=== PATIENT | female | born 1960 | race Caucasian/White ===

== ENCOUNTER 2023-01-12 08:00 | Outpatient (CLI) | payer OTHER, BC ==
--- NOTE | 2023-01-12 17:15 | XRAY Report ---
PROCEDURE: Ribs w/PA Chest RT INDICATIONS: RIGHT SIDED RIB PAIN TECHNIQUE: 2 views of the right ribs were acquired, along with a single view chest. COMPARISON: None FINDINGS: Surgical changes and devices: None. Bones and chest wall: No fractures or dislocations. No suspicious bony lesions. Overlying soft tis sues appear unremarkable. Lungs and pleura: No pleural effusions or pneumothorax. Lungs appear clear. Mediastinum: Mediastinal contours appear normal. Heart size is normal. IMPRESSION: No gross displaced right rib fracture is seen. No acute cardiopulmonary pathology. Reviewed by: Ricardo Zamora MD on 01/12/2023 5:13 PM PST Approved by: Ricardo Zamora MD on 01/12/2023 5:13 PM PST Station ID: [id number]
== END 2023-01-12 23:59 | disposition home or self-care (01) ==
LOC: DI.S 08:00
PROVIDERS: ATTEND Registered Nurse
DX: R07.81 Pleurodynia (principal)

== ENCOUNTER 2023-05-21 07:00 | Outpatient (CLI) | payer OTHER, BC | END 2023-05-21 23:59 | disposition home or self-care (01) | LOC: LAB.S 07:00 | PROVIDERS: ATTEND Physician Assistant Medical | DX: R30.0 Dysuria (principal); R10.9 Unspecified abdominal pain | CPT/HCPCS: 87086 ==

== ENCOUNTER 2023-05-21 08:00 | Outpatient (CLI) | payer OTHER, BC ==
--- NOTE | 2023-05-21 16:45 | XRAY Report ---
PROCEDURE: Lumbar Spine 2 View INDICATIONS: LUMBAR BACK PAIN TECHNIQUE: 2 views of the lumbar spine were acquired. COMPARISON: None. FINDINGS: Bones: 5 dgv-ebm-cskclie vertebrae are present. Mild degenerative disc and slight endplate spurring and sclerosis in the lumbar spine, most evident at the L2-3 level. There is normal bony alignment. N o vertebral body compression fractures. No suspicious bony lesions. Soft tissues: Overlying bowel gas pattern is normal. Cholecystectomy clips. No suspicious soft tissu e calcifications. IMPRESSION: Mild lumbar spine degeneration. Reviewed by: Karishma Joy MD on 05/21/2023 4:43 PM PDT Approved by: Karishma Joy MD on 05/21/2023 4:43 PM PDT Station ID: [id number]
== END 2023-05-21 23:59 | disposition home or self-care (01) ==
LOC: DI.S 08:00
PROVIDERS: ATTEND Physician Assistant Medical
DX: M47.816 Spondylosis without myelopathy or radiculopathy, lumbar region (principal); M51.36 Other intervertebral disc degeneration, lumbar region

== ENCOUNTER 2024-07-15 18:59 | Emergency (ER) | payer OTHER, BC ==
--- NOTE | 2024-07-15 19:32 | ED Physician Documentation ---
History of Present Illness - Stated complaint Stated Complaint: L WRIST/R KNEE INJ - Chief complaint Chief Complaint: Trauma Ext - Additonal information Additional information: Patient is a 63-year-old female presenting to the emergency department after a fall while walking upstairs to a restaurant. Patient is not on any blood thinners and did not injure her head. Patient notes pain to left wrist and left knee. No obvious deformity numbness or tingling on patient's arrival. She was able to get up and walk after injury. She denies any other previous injuries to left wrist or right knee. No recent surgeries. Patient took Advil prior to coming to emergency department. PD PAST MEDICAL HISTORY - Past Medical History Past Medical History: Yes Psych: Depression, Anxiety - Past Surgical History Past Surgical History: Yes General: Cholecystectomy - Present Medications Home Medications: Ambulatory Orders Medication Instructions Recorded Confirmed HYDROcod/ACETAM 5/325 [Macomb 5/325] 1 - 2 tab PO Q6H PRN #15 tablet 07/15/24 - Allergies Allergies/Adverse Reactions: Allergies Allergy/AdvReac Type Severity Reaction Status Date / Time azithromycin Allergy Rash Verified 07/15/24 19:03 Penicillins Allergy Rash Verified 07/15/24 19:03 - Social History Does the pt smoke?: No Smoking Status: Never smoker Does the pt drink ETOH?: No Does the pt have substance abuse?: No - Immunizations Immunizations are current?: Yes - POLST Patient has POLST: No PD ED PE NORMAL - Vitals Vital signs reviewed: Yes - General General: Alert and oriented X 3 - HEENT HEENT: Atraumatic - Neck Neck: Supple, no meningeal sign, C-Spine cleared by NEXUS criteria - Cardiac Cardiac: RRR, No murmur, No gallop, No rub - Respiratory Respiratory: No respiratory distress, Clear bilaterally - Abdomen Abdomen: Normal bowel sounds, Non tender, Non distended - Derm Derm: Normal color, Warm and dry, No rash, Other (No significant bruising or abrasion from the fall) - Extremities Extremities: Other (Right knee shows full range of motion no obvious deformity. Strength intact equal bilateral to left knee. No significant tenderness other than light touch to anterior patella. Patellar tendon and quadriceps tendon appear intact. Patient able to stand and bear weight on right knee. Patient neuro) - Neuro Neuro: Alert and oriented X 3 - Free text exam Free text exam: Physical exam shows mild swelling to left wrist with decreased range of motion. Full range of motion of digits 1 through 5 on left wrist and full range of motion of left elbow. Radial pulses 2+. No scaphoid tenderness to palation. Capillary refill < 3 seconds on examination. Results - Vitals Vitals: Vital Signs - 24 hr 07/15/24 19:03 Temperature 36.8 C Heart Rate 74 Respiratory 16 Rate Blood Pressure 160/90 H O2 Saturation 98 - Rads (name of study) right knee x-ray Relevant Findings:: EMP independent interpretation of test left wrist x-ray Relevant Findings:: EMP independent interpretation of test PD Medical Decision Making - ED course Complexity details: reviewed results ED course: Patient is a 63-year-old female presenting to the emergency department with left wrist pain and right knee pain after a fall while walking up the stairs to a restaurant. Patient notes significant pain to left wrist and right knee. She was able to get up and walk after a fall. She denies sustaining any injury to her head neck and is not on blood thinners. Patient took Advil prior to arrival. Patient vital stable on arrival. Physical exam shows mild swelling to left wrist with decreased range of motion. Full range of motion of digits 1 through 5 on left wrist and full range of motion of left elbow. Radial pulses 2+. No scaphoid tenderness to palation. Capillary refill < 3 seconds on examination. Patient given [place] and ice here in the emergency department for pain control. X-rays obtained of left wrist and right knee here in emergency department. X-rays of left wrist shows fracture to radius of the metadiaphysis and minimally displaced ulnar styloid fracture. Patient placed in sugar-tong splint. Patient remains neurovascularly intact. Pain under control. Right knee x-ray shows small joint effusion. Patient is able to bear weight on it. Patient given brace for right knee. She was given instructions to follow-up with orthopedics in the outpatient setting. Will hold off on crutches at this time due to fracture of left wrist. Patient given sling for left wrist fracture. Patient instructed to watch for any numbness tingling color changes to left hand she was agreeable with this plan. Departure - Departure Disposition: 01 Home, Self Care Clinical Impression: Left radial fracture, Closed traumatic minimally displaced fracture of styloid process of left ulna, Injury of wrist Condition: Good Follow-Up: Roger Johnson MD [Provider Admit Priv/Credential] - Comments: You were seen here in the emergency department for your left wrist and right knee pain. You were placed in a splint due to fracture of the radius and ulna of the left wrist. I have given you follow-up with orthopedics. This should heal well at home. Watch for any numbness tingling discoloration to your distal extremity these are signs of worsening injury. I have also given you a brace for your right knee you have a small joint effusion this could be considered secondary to tear in your ligaments of your right knee. The brace should provide stability in the meantime as he should not use crutches due to the fracture of your left wrist. Follow-up with orthopedics within 1 to 2 weeks for reevaluation. I am prescribing a short course of narcotic pain medication for you. These are potentially dangerous and addictive medications that should be used carefully. These medications may constipate you. Take an cjrm-lgz-rjbzisf stool softener (docusate) twice daily with plenty of water while taking these medications. If you go 24 hours without a bowel movement, take unsz-efa-rquomsk miralax, per package instructions. Do not drink or drive while taking these medications. If you received narcotic or sedating medications while in the emergency department, do not drive for 24 hours. Store this medication in a safe, secure place and out of reach of children. It is a violation of federal law to give or sell this medication to another person or to use in a manner other than prescribed. The ED will not refill narcotic prescriptions, including prescriptions lost or stolen. To dispose of unwanted medications: 1. [facility] provides a drop box for medication in pill form only (no liquids) 8:00 am to 4:30 p.m. Thursday-Thursday in the lobby of the [facility], [address] [place] [address]. Empty pills into ziplock bag before disposal. Call [phone] for information. 2.[employer] is a free service available to all [facility] residents. Go to [email or web address] Note that many narcotic pain relievers also contain Tylenol/acetaminophen. Please ensure that your total dose of acetaminophen from all sources does not exceed 3 g (3000 mg) per day. Forms: PCP List
[2024-07-15] MEDS: HYDROcod/ACETAM 5/325 MG TABLET PO STA (19:48)
[2024-07-15] MEDS: ACETAMINOPHEN 325 MG TABLET PO STA (21:59)
[2024-07-15] MEDS: ONDANSETRON ODT 4 MG TABLET TL STA (21:59)
--- NOTE | 2024-07-15 22:31 | XRAY Report ---
PROCEDURE: Knee 4+V RT INDICATIONS: pain and swelling after fall TECHNIQUE: 4 views of the knee(s) were acquired. COMPARISON: None. FINDINGS: Bones: No fractures or dislocations. No suspicious bony lesions. Soft tissues: Small knee joint effusion. No suspicious soft tissue calcifications or masses. IMPRESSION: No acute bony abnormality. Small knee joint effusion. Reviewed by: Abdulaziz Pond MD on 07/15/2024 10:30 PM PDT Approved by: Abdulaziz Pond MD on 07/15/2024 10:30 PM PDT Station ID: [id number]
--- NOTE | 2024-07-15 22:32 | XRAY Report ---
PROCEDURE: Wrist 3+V LT INDICATIONS: pain and swelling after fall TECHNIQUE: 4 views of the wrist were acquired. COMPARISON: None. FINDINGS: Bones: Extra-articular fracture of the distal radius metadiaphysis. Minimally displaced fracture of the ulnar styloid. Soft tissues: No suspicious soft tissue calcifications or masses. IMPRESSION: Minimally displaced, extra-articular fracture of the distal radius metadiaphysis. Minimally displaced fracture of the ulnar styloid. Reviewed by: Abdulaziz Podn MD on 07/15/2024 10:31 PM PDT Approved by: Abdulaziz Pond MD on 07/15/2024 10:31 PM PDT Station ID: [id number]
[2024-07-15 23:03] VITALS: BP 123/78; O2SAT 96
[2024-07-15] MEDS: ONDANSETRON ODT 4 MG Prepack 2 TL STA (23:03)
== END 2024-07-15 23:12 | disposition home or self-care (01) ==
LOC: ED 18:59
DX: S52.612A Displaced fracture of left ulna styloid process, initial encounter for closed fracture (principal); W10.9XXA Fall (on) (from) unspecified stairs and steps, initial encounter; Y93.89 Activity, other specified; Y92.511 Restaurant or cafe as the place of occurrence of the external cause
CPT/HCPCS: 73110; 73564; 99283; 99284; A9270; Q0162